=== PATIENT | male | born 1980 | race Hispanic/Latino ===

== ENCOUNTER 2016-08-21 22:36 | Emergency (ER) | payer MEDICARE ==
[2016-08-21 22:57] VITALS: BP 129/88
[2016-08-21 23:17] LABS: Basophils % (Auto) 0.6 % (0.0-1.8); Eosinophils % (Auto) 1.3 % (0.0-4.3); Hematocrit 48.5 % (35.5-45.6); Hemoglobin 15.9 gm/dl (11.8-15.2); Mean Corpuscular HGB Conc 33 % (32-34); Mean Corpuscular Hemoglobin 30 pg (28-32); Mean Corpuscular Volume 91 fl (84-94); Platelet Count 230 K/mm3 (140-440); Red Blood Count 5.33 M/mm3 (3.65-5.03); Red Cell Distribution Width 13.5 % (13.2-15.2); White Blood Count 9.3 K/mm3 (4.5-11.0)
[2016-08-21 23:34] LABS: Anion Gap 12 mmol/L; Blood Urea Nitrogen 4 mg/dL (9-20); Calcium 9.1 mg/dL (8.4-10.2); Carbon Dioxide 30 mmol/L (22-30); Chloride 97.8 mmol/L (98-107); Glucose 118 mg/dL (75-100); Potassium 3.8 mmol/L (3.6-5.0); Sodium 136 mmol/L (137-145)
[2016-08-21 23:42] LABS: Urine Drugs of Abuse Note Disclamer
[2016-08-22 00:24] LABS: Bilirubin,Urine NEG (Negative); Blood,Urine NEG (Negative); Ketones,Urine NEG (Negative); Leukocyte Esterase,Urine NEG (Negative); Nitrite,Urine NEG (Negative); Protein,Urine <15 mg/dL mg/dL (Negative); Urobilinogen,Urine < 2.0 mg/dL (<2.0)
== END 2016-08-21 23:45 | disposition left against medical advice (07) ==
LOC: ED 22:36
DX: R45.851 Suicidal ideations (principal); Z53.21 Procedure and treatment not carried out due to patient leaving prior to being seen by health care provider
CPT/HCPCS: 36415; 80048; 80307; 81001; 85025; G0480; 80320

== ENCOUNTER 2016-09-17 10:45 | Emergency (ER) | payer MEDICARE ==
--- NOTE | 2016-09-17 12:34 | Emergency Department Report ---
Chief Complaint: Dental/Oral Stated Complaint: MOUTH PAIN Time Seen by Provider: 09/17/16 12:22 - HPI History of Present Illness: pt c/o dental pain x 3 days. Pt states his teeth are loose. PT states he has not been to the dentist in a long time. PT states he came to the ED today because he thought he was going to pass out. 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 Due to findings the following was ordered: ekg, cxr, labs ED Disposition for MSE Condition: Stable Referrals: PRIMARY CARE, [Primary Care Provider] - 3-5 Days
--- NOTE | 2016-09-17 13:39 | XRay Report ---
ROUTINE CHEST, TWO VIEWS: HISTORY: Short of breath. The trachea, heart, mediastinal contour, lung fuller and bony thorax are unremarkable. IMPRESSION: Unremarkable chest x-ray.
[2016-09-17 13:43] LABS: Basophils % (Auto) 0.6 % (0.0-1.8); Eosinophils % (Auto) 2.2 % (0.0-4.3); Hematocrit 44.1 % (35.5-45.6); Hemoglobin 15.1 gm/dl (11.8-15.2); Mean Corpuscular HGB Conc 34 % (32-34); Mean Corpuscular Hemoglobin 30 pg (28-32); Mean Corpuscular Volume 88 fl (84-94); Platelet Count 249 K/mm3 (140-440); Red Blood Count 5.02 M/mm3 (3.65-5.03); White Blood Count 8.7 K/mm3 (4.5-11.0)
[2016-09-17 13:50] LABS: INR 0.92 (0.87-1.13)
[2016-09-17 13:51] LABS: Partial Thromboplastin Time 27.6 Sec. (24.2-36.6)
[2016-09-17 13:58] LABS: Alanine Aminotransferase 86 units/L (7-56); Albumin 4.4 g/dL (3.9-5); Albumin/Globulin Ratio 1.4 %; Alkaline Phosphatase 87 units/L (35-129); Anion Gap 18 mmol/L; Blood Urea Nitrogen 6 mg/dL (9-20); Calcium 9.3 mg/dL (8.4-10.2); Carbon Dioxide 25 mmol/L (22-30); Chloride 101.9 mmol/L (98-107); Glucose 103 mg/dL (75-100); Potassium 4.1 mmol/L (3.6-5.0); Sodium 141 mmol/L (137-145); Total Protein 7.5 g/dL (6.3-8.2)
[2016-09-17 20:44] VITALS: BP 128/79
--- NOTE | 2016-09-17 21:34 | Emergency Department Report ---
ED ENT HPI - General Chief complaint: Dental/Oral Stated complaint: MOUTH PAIN Time Seen by Provider: 09/17/16 12:22 Source: patient Mode of arrival: Ambulatory Limitations: No Limitations - History of Present Illness Initial comments: 36-year-old male with a past medical history of schizophrenia presents to the hospital complains of painful and swelling to gums for the past 3-4 days. Patient states he's been feeling hot but did not take his temperature and suspects he has had fever. Earlier today patient felt like he was going to pass out. He denies chest pain, shortness of breath, nausea, vomiting, or diarrhea. Patient has not recently seen a dentist. Pain is rated 7/10 in intensity, aching, and intermittent. Worse with palpation. - Related Data Home Medications Medication Instructions Recorded Confirmed Last Taken Olanzapine [ZyPREXA] 20 mg PO HS 02/23/14 08/21/16 04/11/14 Benadryl CAP 50 mg PO HS 08/21/16 08/21/16 Unknown Previous Rx's Medication Instructions Recorded Last Taken Type Chlorhexidine Mouthwash [Peridex] 15 ml MM BID #1 bottle 09/17/16 Unknown Rx Clindamycin [Clindamycin CAP] 450 mg PO Q8HR 10 Days 09/17/16 Unknown Rx Ibuprofen [Motrin] 800 mg PO Q8HR PRN #30 tablet 09/17/16 Unknown Rx traMADol [Ultram 50 MG tab] 50 mg PO Q6HR PRN #20 tablet 09/17/16 Unknown Rx Allergies Allergy/AdvReac Type Severity Reaction Status Date / Time No Known Allergies Allergy Verified 09/17/16 12:07 ED Dental HPI - General Chief complaint: Dental/Oral Stated complaint: MOUTH PAIN Time Seen by Provider: 09/17/16 12:22 Source: patient Mode of arrival: Ambulatory Limitations: No Limitations - Related Data Home Medications Medication Instructions Recorded Confirmed Last Taken Olanzapine [ZyPREXA] 20 mg PO HS 02/23/14 08/21/16 04/11/14 Benadryl CAP 50 mg PO HS 08/21/16 08/21/16 Unknown Previous Rx's Medication Instructions Recorded Last Taken Type Chlorhexidine Mouthwash [Peridex] 15 ml MM BID #1 bottle 09/17/16 Unknown Rx Clindamycin [Clindamycin CAP] 450 mg PO Q8HR 10 Days 09/17/16 Unknown Rx Ibuprofen [Motrin] 800 mg PO Q8HR PRN #30 tablet 09/17/16 Unknown Rx traMADol [Ultram 50 MG tab] 50 mg PO Q6HR PRN #20 tablet 09/17/16 Unknown Rx Allergies Allergy/AdvReac Type Severity Reaction Status Date / Time No Known Allergies Allergy Verified 09/17/16 12:07 ED Review of Systems ROS: Stated complaint: MOUTH PAIN Other details as noted in HPI Comment: All other systems reviewed and negative Other: Constitutional: No fevers chills Eyes: No eye pain visual changes or discharge ENT: As per HPI Neck: Denies pain Respiratory: Denies cough wheezing shortness of breath Cardiovascular: Denies chest pain, palpitations, syncope GI: Denies abdominal pain, nausea, vomiting, diarrhea : Denies dysuria, urinary frequency, or urgency Musculoskeletal: Denies back pain, joint swelling Skin: Denies rash, lesions, erythema Neurologic: Denies headache, numbness, weakness Psychiatric: Denies suicidal ideation, hallucinations ED Past Medical Hx - Past Medical History Hx Psychiatric Treatment: Yes (Schizophrenia) - Surgical History Past Surgical History?: No - Social History Smoking Status: Current Every Day Smoker Substance Use Type: None - Medications Home Medications: Home Medications Medication Instructions Recorded Confirmed Last Taken Type Olanzapine [ZyPREXA] 20 mg PO HS 02/23/14 08/21/16 04/11/14 History Benadryl CAP 50 mg PO HS 08/21/16 08/21/16 Unknown History Chlorhexidine Mouthwash [Peridex] 15 ml MM BID #1 bottle 09/17/16 Unknown Rx Clindamycin [Clindamycin CAP] 450 mg PO Q8HR 10 Days 09/17/16 Unknown Rx Ibuprofen [Motrin] 800 mg PO Q8HR PRN #30 tablet 09/17/16 Unknown Rx traMADol [Ultram 50 MG tab] 50 mg PO Q6HR PRN #20 tablet 09/17/16 Unknown Rx ED Physical Exam - General Limitations: No Limitations - Other Other exam information: General: No limitations, patient is alert in no acute distress Head exam: Atraumatic, normocephalic Eyes exam: Normal appearance, pupils equal reactive to light, extraocular movements intact ENT: Moist mucous membrane, tooth #11 with swelling at home without fluctuance. Dental caries and loose tooth #12. No ulcerations noted Neck exam: Normal inspection, full range of motion, no meningismus nontender Respiratory exam: Clear to auscultation bilateral, no wheezes, rales, crackles Cardiovascular: Normal rate and rhythm, normal heart sounds Abdomen: Soft, nondistended, and nontender, with normal bowel sounds, no rebound, or guarding Extremity: Full range of motion normal inspection no deformity Back: Normal Inspection, full range of motion, no tenderness Neurologic: Alert, oriented x3, cranial nerves intact, no motor or sensory deficit Psychiatric: normal affect, normal mood Skin: Warm, dry, intact ED Course Vital Signs 09/17/16 09/17/16 12:09 20:44 Temperature 97.9 F Pulse Rate 90 79 Respiratory 17 19 Rate Blood Pressure 119/81 Blood Pressure 128/79 [Right] O2 Sat by Pulse 100 96 Oximetry - Reevaluation(s) Reevaluation #1: 09/17/16 21:31 Patient stable. ED Medical Decision Making - Lab Data Result diagrams: 09/17/16 13:08 09/17/16 13:08 Lab Results 09/17/16 09/17/16 09/17/16 Range/Units 13:08 13:08 13:08 WBC 8.7 (4.5-11.0) K/mm3 RBC 5.02 (3.65-5.03) M/mm3 Hgb 15.1 (11.8-15.2) gm/dl Hct 44.1 (35.5-45.6) % MCV 88 (84-94) fl MCH 30 (28-32) pg MCHC 34 (32-34) % RDW 13.0 L (13.2-15.2) % Plt Count 249 (140-440) K/mm3 Lymph % (Auto) 29.4 (13.4-35.0) % [place] % (Auto) 8.1 H (0.0-7.3) % Eos % (Auto) 2.2 (0.0-4.3) % Baso % (Auto) 0.6 (0.0-1.8) % Lymph # 2.6 (1.2-5.4) K/mm3 [place] # 0.7 (0.0-0.8) K/mm3 Eos # 0.2 (0.0-0.4) K/mm3 Baso # 0.0 (0.0-0.1) K/mm3 Seg Neutrophils % 59.7 (40.0-70.0) % Seg Neutrophils # 5.2 (1.8-7.7) K/mm3 PT 12.8 (12.2-14.9) Sec. INR 0.92 (0.87-1.13) APTT 27.6 (24.2-36.6) Sec. Sodium 141 (137-145) mmol/L Potassium 4.1 (3.6-5.0) mmol/L Chloride 101.9 (98-107) mmol/L Carbon Dioxide 25 (22-30) mmol/L Anion Gap 18 mmol/L BUN 6 L (9-20) mg/dL Creatinine 0.8 (0.8-1.5) mg/dL Estimated GFR > 60 ml/min BUN/Creatinine Ratio 7.50 % Glucose 103 H (75-100) mg/dL Calcium 9.3 (8.4-10.2) mg/dL Total Bilirubin 0.30 (0.1-1.2) mg/dL AST 35 (5-40) units/L ALT 86 H (7-56) units/L Alkaline Phosphatase 87 (35-129) units/L Troponin T < 0.010 (0.00-0.029) ng/mL Total Protein 7.5 (6.3-8.2) g/dL Albumin 4.4 (3.9-5) g/dL Albumin/Globulin Ratio 1.4 % - EKG Data -: EKG Interpreted by Me (sinus rate [address] elevation ND or T inversion) - EKG Data When compared to previous EKG there are: previous EKG unavailable - Medical Decision Making Patient was treated with antibiotics and mouthwash. Follow up with dentist be encouraged. Labs, vital signs, and EKG unremarkable - Differential Diagnosis dental caries, fractured tooth, gingivitis Critical Care Time: No Critical care attestation.: If time is entered above; I have spent that time in minutes in the direct care of this critically ill patient, excluding procedure time. ED Disposition Clinical Impression: Infected dental caries Disposition: DC-01 TO HOME OR SELFCARE Is pt being admited?: No Does the pt Need Aspirin: No Condition: Stable Instructions: Dental Abscess (ED) Additional Instructions: Take the medication as prescribed. Follow-up with the dentist provided or with a dentist of your choice. Return if symptoms worsen Prescriptions: Chlorhexidine Mouthwash [Peridex] 15 ml MM BID #1 bottle Clindamycin [Clindamycin CAP] 450 mg PO Q8HR 10 Days Ibuprofen [Motrin] 800 mg PO Q8HR PRN #30 tablet PRN Reason: Pain traMADol [Ultram 50 MG tab] 50 mg PO Q6HR PRN #20 tablet PRN Reason: Pain Referrals: [facility] [Outside] - 3-[address] [facility] [Provider Group] - 3-5 Days Time of Disposition: 21:35
== END 2016-09-17 21:43 | disposition home or self-care (01) ==
LOC: ED 10:45
DX: K04.7 Periapical abscess without sinus (principal); K02.9 Dental caries, unspecified; F20.9 Schizophrenia, unspecified; F17.200 Nicotine dependence, unspecified, uncomplicated
CPT/HCPCS: 36415; 71020; 80053; 84484; 85025; 85610; 85730; 93005; 93010; 99283

== ENCOUNTER 2017-01-15 19:57 | Emergency (ER) | payer MEDICARE ==
[2017-01-15 20:17] VITALS: BP 167/104
[2017-01-15 20:52] LABS: Basophils % (Auto) 0.6 % (0.0-1.8); Eosinophils % (Auto) 1.2 % (0.0-4.3); Hematocrit 47.6 % (35.5-45.6); Hemoglobin 15.7 gm/dl (11.8-15.2); Mean Corpuscular HGB Conc 33 % (32-34); Mean Corpuscular Hemoglobin 29 pg (28-32); Mean Corpuscular Volume 88 fl (84-94); Platelet Count 300 K/mm3 (140-440); Red Blood Count 5.41 M/mm3 (3.65-5.03); Red Cell Distribution Width 13.4 % (13.2-15.2); White Blood Count 11.4 K/mm3 (4.5-11.0)
[2017-01-15 21:12] LABS: Anion Gap 19 mmol/L; BUN/Creatinine Ratio 8; Blood Urea Nitrogen 6 mg/dL (9-20); Calcium 9.4 mg/dL (8.4-10.2); Carbon Dioxide 25 mmol/L (22-30); Chloride 100.6 mmol/L (98-107); Glucose 94 mg/dL (75-100); Potassium 3.9 mmol/L (3.6-5.0); Sodium 141 mmol/L (137-145)
[2017-01-15 21:13] LABS: Urine Drugs of Abuse Note Disclamer
[2017-01-15 21:14] LABS: Anion Gap 21 mmol/L; BUN/Creatinine Ratio 8; Blood Urea Nitrogen 6 mg/dL (9-20); Calcium 9.6 mg/dL (8.4-10.2); Carbon Dioxide 25 mmol/L (22-30); Chloride 100.3 mmol/L (98-107); Glucose 94 mg/dL (75-100); Sodium 142 mmol/L (137-145)
[2017-01-15 21:20] LABS: Bilirubin,Urine NEG (Negative); Blood,Urine NEG (Negative); Ketones,Urine NEG (Negative); Leukocyte Esterase,Urine NEG (Negative); Nitrite,Urine NEG (Negative); Protein,Urine <15 mg/dL mg/dL (Negative); Urobilinogen,Urine < 2.0 mg/dL (<2.0); WBC,Urine < 1.0 /HPF (0.0-6.0)
== END 2017-01-16 07:30 | disposition left against medical advice (07) ==
LOC: ED 19:57
DX: R07.9 Chest pain, unspecified (principal); R44.0 Auditory hallucinations; F20.9 Schizophrenia, unspecified; F17.200 Nicotine dependence, unspecified, uncomplicated; Z53.21 Procedure and treatment not carried out due to patient leaving prior to being seen by health care provider
CPT/HCPCS: 36415; 80048; 80307; 81001; 84484; 85025; 93005; 93010; G0480; 80320

== ENCOUNTER 2017-03-02 21:20 | Emergency (ER) | payer MEDICARE ==
[2017-03-02] MEDS ORDERED: NACL 0.9% 1000 ML 1,000 ML IV ONE (21:49)
[2017-03-02 22:45] LABS: Basophils % (Auto) 0.3 % (0.0-1.8); Eosinophils % (Auto) 0.2 % (0.0-4.3); Hematocrit 41.5 % (35.5-45.6); Hemoglobin 14.3 gm/dl (11.8-15.2); Lymphocytes # (Auto) 1.7 K/mm3 (1.2-5.4); Lymphocytes % (Auto) 17.7 % (13.4-35.0); Mean Corpuscular HGB Conc 35 % (32-34); Mean Corpuscular Hemoglobin 30 pg (28-32); Mean Corpuscular Volume 86 fl (84-94); Monocytes # (Auto) 1.1 K/mm3 (0.0-0.8); Monocytes % (Auto) 11.5 % (0.0-7.3); Platelet Count 154 K/mm3 (140-440); Red Blood Count 4.85 M/mm3 (3.65-5.03); Red Cell Distribution Width 13.2 % (13.2-15.2)
[2017-03-02 23:01] LABS: Alanine Aminotransferase 20 units/L (7-56); Albumin 4.1 g/dL (3.9-5); BUN/Creatinine Ratio 4; Blood Urea Nitrogen 4 mg/dL (9-20); Calcium 8.6 mg/dL (8.4-10.2); Hemolysis Index 4
[2017-03-02 23:04] VITALS: BP 121/69
[2017-03-02] MEDS ORDERED: TYLENOL PO ONE (23:04)
[2017-03-02] MEDS ORDERED: TYLENOL ONE (23:06)
[2017-03-02 23:58] LABS: Bilirubin,Urine NEG (Negative); Blood,Urine SM (Negative); Color,Urine Yellow (Yellow); Nitrite,Urine NEG (Negative); Protein,Urine <15 mg/dL mg/dL (Negative)
== END 2017-03-03 14:50 | disposition left against medical advice (07) ==
LOC: ED 21:20
DX: R19.7 Diarrhea, unspecified (principal); Z53.21 Procedure and treatment not carried out due to patient leaving prior to being seen by health care provider
CPT/HCPCS: 36415; 80053; 81001; 85025; 93005; 93010; 96360; 96361; J7030

== ENCOUNTER 2018-08-01 22:41 | Emergency (ER) | payer MEDICARE ==
[2018-08-01 23:55] LABS: Basophils % (Auto) 0.6 % (0.0-1.8); Eosinophils # (Auto) 0.3 K/mm3 (0.0-0.4); Eosinophils % (Auto) 3.4 % (0.0-4.3); Hematocrit 41.8 % (35.5-45.6); Hemoglobin 14.2 gm/dl (11.8-15.2); Lymphocytes # (Auto) 2.8 K/mm3 (1.2-5.4); Lymphocytes % (Auto) 34.7 % (13.4-35.0); Mean Corpuscular HGB Conc 34 % (32-34); Mean Corpuscular Volume 92 fl (84-94); Monocytes % (Auto) 12.7 % (0.0-7.3); Platelet Count 193 K/mm3 (140-440); Red Blood Count 4.57 M/mm3 (3.65-5.03); Red Cell Distribution Width 13.3 % (13.2-15.2)
--- NOTE | 2018-08-01 23:58 | Emergency Department Report ---
ED Medical Clearance HPI - General Chief complaint: Medical Clearance Stated complaint: MEDICAL CLEARANCE Time Seen by Provider: 08/01/18 23:52 Source: patient Mode of arrival: Ambulatory - History of Present Illness Initial comments: 38-year-old male states he is at [facility] and was 8 minutes late pass curfew. The patient sent to ER for medical clearance. The patient has no complaints, denies drug or alcohol use today. MD Complaint: medical clearance request -: This evening Reason for Medical Clearance: other (possible intoxication) Traumatic Symptoms: denies traumatic injury Home medications: Home Medications Medication Instructions Recorded Confirmed Last Taken Olanzapine [ZyPREXA] 20 mg PO HS 02/23/14 08/21/16 04/11/14 Benadryl CAP 50 mg PO HS 08/21/16 08/21/16 Unknown Previous Rx's Medication Instructions Recorded Last Taken Type Chlorhexidine Mouthwash [Peridex] 15 ml MM BID #1 bottle 09/17/16 Unknown Rx Clindamycin [Clindamycin CAP] 450 mg PO Q8HR 10 Days capsule 09/17/16 Unknown Rx Ibuprofen [Motrin] 800 mg PO Q8HR PRN #30 tablet 09/17/16 Unknown Rx traMADol [Ultram 50 MG tab] 50 mg PO Q6HR PRN #20 tablet 09/17/16 Unknown Rx Allergies/Adverse reactions: Allergies Allergy/AdvReac Type Severity Reaction Status Date / Time No Known Allergies Allergy Verified 09/17/16 12:07 ED Review of Systems ROS: Stated complaint: MEDICAL CLEARANCE Other details as noted in HPI Comment: All other systems reviewed and negative Psychiatric: denies: auditory hallucinations, homicidal thoughts, suicidal thoughts ED Past Medical Hx - Past Medical History Previous Medical History?: Yes Hx Psychiatric Treatment: Yes (Schizophrenia) - Surgical History Past Surgical History?: No - Social History Smoking Status: Current Every Day Smoker Substance Use Type: None - Medications Home Medications: Home Medications Medication Instructions Recorded Confirmed Last Taken Type Olanzapine [ZyPREXA] 20 mg PO HS 02/23/14 08/21/16 04/11/14 History Benadryl CAP 50 mg PO HS 08/21/16 08/21/16 Unknown History Chlorhexidine Mouthwash [Peridex] 15 ml MM BID #1 bottle 09/17/16 Unknown Rx Clindamycin [Clindamycin CAP] 450 mg PO Q8HR 10 Days capsule 09/17/16 Unknown Rx Ibuprofen [Motrin] 800 mg PO Q8HR PRN #30 tablet 09/17/16 Unknown Rx traMADol [Ultram 50 MG tab] 50 mg PO Q6HR PRN #20 tablet 09/17/16 Unknown Rx ED Physical Exam - General Limitations: No Limitations General appearance: alert, in no apparent distress - Head Head exam: Present: atraumatic, normocephalic - Eye Eye exam: Present: normal appearance - ENT ENT exam: Present: mucous membranes moist - Neck Neck exam: Present: normal inspection - Respiratory Respiratory exam: Present: normal lung sounds bilaterally. Absent: respiratory distress - Cardiovascular Cardiovascular Exam: Present: regular rate, normal rhythm - GI/Abdominal GI/Abdominal exam: Present: soft. Absent: distended, tenderness - Extremities Exam Extremities exam: Present: normal inspection - Neurological Exam Neurological exam: Present: alert, oriented X3 - Psychiatric Psychiatric exam: Present: normal affect, normal mood - Skin Skin exam: Present: warm, dry, intact, normal color ED Course Vital Signs 08/01/18 08/01/18 08/02/18 23:01 23:58 00:02 Temperature 98.2 F 98.6 F Pulse Rate 82 90 Respiratory 18 18 18 Rate Blood Pressure 139/78 Blood Pressure 130/77 [Left] O2 Sat by Pulse 96 96 Oximetry ED Medical Decision Making - Lab Data Result diagrams: 08/01/18 23:20 08/01/18 23:20 - Medical Decision Making - labs unremarkable - vitals normal - will d/c at this time back to [facility] ED Disposition Clinical Impression: Medical clearance for psychiatric admission Disposition: - TO HOME OR SELFCARE Is pt being admited?: No Condition: Stable Additional Instructions: You have been medically cleared to return to [facility]. Referrals: PRIMARY CARE [Primary Care Provider] - 3-5 Days Time of Disposition: 00:28
[2018-08-02 00:03] VITALS: BP 130/77
[2018-08-02 00:09] LABS: Bacteria,Urine 1+ /HPF (Negative); Bilirubin,Urine NEG (Negative); Blood,Urine SM (Negative); Color,Urine Yellow (Yellow); Protein,Urine <15 mg/dL mg/dL (Negative); Urobilinogen,Urine < 2.0 mg/dL (<2.0)
[2018-08-02 00:15] LABS: Blood Urea Nitrogen 7 mg/dL (9-20)
[2018-08-02 00:16] LABS: BUN/Creatinine Ratio 9; Hemolysis Index 7
[2018-08-02 00:18] LABS: Amphetamine Screen,Urine PRESUMPTIVE NEGATIVE; Benzodiazepines Screen,Urine PRESUMPTIVE NEGATIVE; Cannabinoid Screen,Urine PRESUMPTIVE NEGATIVE; Cocaine Screen,Urine PRESUMPTIVE NEGATIVE; Methadone Screen,Urine PRESUMPTIVE NEGATIVE; Opiate Screen,Urine PRESUMPTIVE NEGATIVE
== END 2018-08-02 00:35 | disposition home or self-care (01) ==
LOC: ED 22:41
DX: F20.9 Schizophrenia, unspecified (principal); F17.200 Nicotine dependence, unspecified, uncomplicated; Z79.899 Other long term (current) drug therapy
CPT/HCPCS: 36415; 80048; 80307; 81001; 85025; 99284; G0480; 80320

== ENCOUNTER 2018-12-05 18:31 | Emergency (ER) | payer MEDICARE ==
[2018-12-05 20:22] LABS: Bilirubin,Urine NEG (Negative); Blood,Urine SM (Negative); Color,Urine Straw (Yellow); Protein,Urine <15 mg/dL mg/dL (Negative); Urobilinogen,Urine < 2.0 mg/dL (<2.0); WBC,Urine < 1.0 /HPF (0.0-6.0)
--- NOTE | 2018-12-05 20:27 | Emergency Department Report ---
<POOJA JORGE - Last Filed: 12/05/18 20:23> ED Psych HPI - General Chief Complaint: Psych Stated Complaint: SI/HEARING VOICES/DETOX Time Seen by Provider: 12/05/18 20:20 Source: patient Mode of arrival: Ambulatory - History of Present Illness Initial Comments: Mr. Edwards is s 38 y/o wm with hx of schizophrenia who presents SI plan is overdose on sleeping pills. States he has sleeping pills in his b More ill vaginal MD Complaint: suicidal ideation Onset/Timin -: days(s) Associated Psychiatric Symptoms: suicidal ideation History of same: Yes Quality: intermittent Improves With: none Worsens With: none Associated Symptoms: denies other symptoms Treatments Prior to Arrival: none If Self Harm: admits thoughts of, has plan (OD on sleeping pills ) - Related Data Home Medications Medication Instructions Recorded Confirmed Last Taken Olanzapine [ZyPREXA] 20 mg PO HS 02/23/14 12/05/18 04/11/14 Benadryl CAP 50 mg PO HS 08/21/16 12/05/18 Unknown Previous Rx's Medication Instructions Recorded Last Taken Type Chlorhexidine Mouthwash [Peridex] 15 ml MM BID #1 bottle 09/17/16 Unknown Rx Clindamycin [Clindamycin CAP] 450 mg PO Q8HR 10 Days capsule 09/17/16 Unknown Rx Ibuprofen [Motrin] 800 mg PO Q8HR PRN #30 tablet 09/17/16 Unknown Rx traMADol [Ultram 50 MG tab] 50 mg PO Q6HR PRN #20 tablet 09/17/16 Unknown Rx Allergies Allergy/AdvReac Type Severity Reaction Status Date / Time No Known Allergies Allergy Verified 09/17/16 12:07 ED Past Medical Hx - Past Medical History Previous Medical History?: Yes Hx Psychiatric Treatment: Yes (Schizophrenia, Methamphetamine ise) - Surgical History Past Surgical History?: No - Social History Smoking Status: Current Every Day Smoker Substance Use Type: Alcohol, Prescribed, Methamphetamines - Medications Home Medications: Home Medications Medication Instructions Recorded Confirmed Last Taken Type Olanzapine [ZyPREXA] 20 mg PO HS 02/23/14 12/05/18 04/11/14 History Benadryl CAP 50 mg PO HS 08/21/16 12/05/18 Unknown History Chlorhexidine Mouthwash [Peridex] 15 ml MM BID #1 bottle 09/17/16 12/05/18 Unknown Rx Clindamycin [Clindamycin CAP] 450 mg PO Q8HR 10 Days capsule 09/17/16 12/05/18 Unknown Rx Ibuprofen [Motrin] 800 mg PO Q8HR PRN #30 tablet 09/17/16 12/05/18 Unknown Rx traMADol [Ultram 50 MG tab] 50 mg PO Q6HR PRN #20 tablet 09/17/16 12/05/18 Unknown Rx ED Physical Exam - General Limitations: No Limitations General appearance: alert, in no apparent distress - Head Head exam: Present: atraumatic, normocephalic - Eye Eye exam: Present: normal appearance, PERRL, EOMI Pupils: Present: normal accommodation - ENT ENT exam: Present: normal exam - Neck Neck exam: Present: normal inspection, full ROM. Absent: tenderness, lymphadenopathy, thyromegaly - Respiratory Respiratory exam: Present: normal lung sounds bilaterally. Absent: respiratory distress, wheezes, stridor, chest wall tenderness - Cardiovascular Cardiovascular Exam: Present: regular rate, normal rhythm, normal heart sounds. Absent: systolic murmur, diastolic murmur, rubs, gallop - GI/Abdominal GI/Abdominal exam: Present: soft, normal bowel sounds. Absent: distended, tenderness, bruit, hernia - Rectal Rectal exam: Present: deferred - Extremities Exam Extremities exam: Present: normal inspection, full ROM. Absent: tenderness - Back Exam Back exam: Present: normal inspection, full ROM. Absent: tenderness, CVA tenderness (R), CVA tenderness (L) - Neurological Exam Neurological exam: Present: alert, oriented X3, CN II-XII intact, normal gait - Psychiatric Psychiatric exam: Present: anxious, suicidal ideation - Skin Skin exam: Present: warm, dry, intact, normal color. Absent: rash ED Course - Reevaluation(s) Reevaluation #1: PT for 1013 at this for SI, with plan to OD on sleeping pills, has hx of same, not on psych medications at this time. Awaiting medical clearance and psych evlauation. ED Disposition Clinical Impression: Suicidal ideations, Schizophrenia Disposition: DC-01 TO HOME OR SELFCARE Condition: Stable Instructions: Schizophrenia (ED), Suicide Prevention for Adults (ED) Additional Instructions: Please follow-up with Dr. Steele in the next few days. I have also given you a referral for the [facility]. Return to the emergency Department with any worsening of your symptoms, thoughts of harming yourself or others, or any acute distress. Referrals: [facility] [Outside] - [address] [Other] - RACHEL <SURINDER POWERS - Last Filed: 12/06/18 11:18> ED Review of Systems ROS: Stated complaint: SI/HEARING VOICES/DETOX Other details as noted in HPI ED Course Vital Signs 12/05/18 12/05/18 12/06/18 18:41 20:22 01:00 Temperature 97.5 F L 98.0 F 97.7 F Pulse Rate 122 H 98 H 65 Respiratory 20 18 16 Rate Blood Pressure 136/86 Blood Pressure 122/90 94/61 [Left] O2 Sat by Pulse 96 100 Oximetry 12/06/18 07:00 Temperature 97.4 F L Pulse Rate 83 Respiratory 13 Rate Blood Pressure Blood Pressure 157/99 [Left] O2 Sat by Pulse 98 Oximetry ED Medical Decision Making - Lab Data Result diagrams: 12/06/18 Unknown 12/06/18 Unknown - Medical Decision Making This patient initially was made a 1013 after he had some suicidal ideations with the thought of overdosing on sleeping medication. He was seen by the psychiatric team who has rescinded the 1013 and feels the patient is safe for outpatient follow-up and discharge. He gets monthly injections of his psychiatric medication and has good outpatient follow-up with a psychiatrist. I saw the patient today and he is awake, oriented, calm and appropriate. He denies any suicidal or homicidal ideations. The patient has been instructed to follow-up with his primary care physician, his psychiatrist, and to return to the emergency Department with any thoughts of harming himself or others, or with any acute distress. - Differential Diagnosis schizophrenia, bipolar disorder, schizoaffective Critical Care Time: No Critical care attestation.: If time is entered above; I have spent that time in minutes in the direct care of this critically ill patient, excluding procedure time. ED Disposition Is pt being admited?: No Time of Disposition: 11:06
[2018-12-05 20:30] LABS: Amphetamine Screen,Urine PRESUMPTIVE NEGATIVE; Benzodiazepines Screen,Urine PRESUMPTIVE NEGATIVE; Cannabinoid Screen,Urine PRESUMPTIVE NEGATIVE; Cocaine Screen,Urine PRESUMPTIVE NEGATIVE; Methadone Screen,Urine PRESUMPTIVE NEGATIVE; Opiate Screen,Urine PRESUMPTIVE NEGATIVE
[2018-12-06] MEDS ORDERED: diphenhydrAMINE 25 MG CAP PO ONE (00:37)
[2018-12-06 08:20] VITALS: BP 157/99
[2018-12-06 08:50] LABS: Basophils % (Auto) 0.6 % (0.0-1.8); Eosinophils # (Auto) 0.2 K/mm3 (0.0-0.4); Hematocrit 41.9 % (35.5-45.6); Hemoglobin 14.5 gm/dl (11.8-15.2); Lymphocytes # (Auto) 2.3 K/mm3 (1.2-5.4); Lymphocytes % (Auto) 34.2 % (13.4-35.0); Mean Corpuscular HGB Conc 35 % (32-34); Mean Corpuscular Volume 88 fl (84-94); Monocytes # (Auto) 0.6 K/mm3 (0.0-0.8); Monocytes % (Auto) 8.9 % (0.0-7.3); Platelet Count 191 K/mm3 (140-440); Red Blood Count 4.78 M/mm3 (3.65-5.03)
[2018-12-06 09:02] LABS: BUN/Creatinine Ratio 11; Blood Urea Nitrogen 9 mg/dL (9-20); Hemolysis Index 10
--- NOTE | 2018-12-06 09:57 | Consultation ---
History of Present Illness - Reason for Consult Consult date: 12/06/18 Reason for consult: Mental Health Evaluation Requesting physician: POOJA JORGE - Chief Complaint Chief complaint: "I don't like living with my dad' - History of Present Psychiatric Illness 38 y.o. white male who presented to the ER for Si's. The patient was calm and cooperative during the assessment. He stated that he wasn't suicidal on arrival to the ER. He stated that he do not like living with his "dad" so he came to the ER. He stated that he needed a "break" from home. He was offered long-term information, he declined. He stated, "I will go back home." He stated that he is seen by Dr Steele for outpatient psy services and receive the monthly Invega injection for his mood. He stated that he received the injection a week ago. He denies SI/HI's and AVH's. He denies erratic sleep and a poor appetite. He denies recreational drug use and alcohol consumption (etoh). Medications and Allergies Allergies Allergy/AdvReac Type Severity Reaction Status Date / Time No Known Allergies Allergy Verified 09/17/16 12:07 Home Medications Medication Instructions Recorded Confirmed Last Taken Type Olanzapine [ZyPREXA] 20 mg PO HS 02/23/14 12/05/18 04/11/14 History Benadryl CAP 50 mg PO HS 08/21/16 12/05/18 Unknown History Chlorhexidine Mouthwash [Peridex] 15 ml MM BID #1 bottle 09/17/16 12/05/18 Unknown Rx Clindamycin [Clindamycin CAP] 450 mg PO Q8HR 10 Days capsule 09/17/16 12/05/18 Unknown Rx Ibuprofen [Motrin] 800 mg PO Q8HR PRN #30 tablet 09/17/16 12/05/18 Unknown Rx traMADol [Ultram 50 MG tab] 50 mg PO Q6HR PRN #20 tablet 09/17/16 12/05/18 Unknown Rx Past psychiatric history - Past Medical History Past Medical History: No medical history Past Surgical History: No surgical history - past Psychiatric treatment and history psychiatric treatment history: Hx of mood do. Denies a fam psy hx. - Social History Social history: lives with family Mental Status Exam - Vital signs Last Vital Signs Temp 97.4 F L 12/06/18 07:00 Pulse 83 12/06/18 07:00 Resp 13 12/06/18 07:00 BP 157/99 12/06/18 07:00 Pulse Ox 98 12/06/18 07:00 - Exam Narrative exam: MSE: Appearance: calm and cooperative Behavior: regular eye contact Speech: regular rate and tone Mood: "okay" Affect: congruent to mood Thought Process: circumstantial Thought Content: denies SI/HI's and AVH's Motor Activity: sitting up in bed Cognition: A/O x3 Insight: fair Judgment: fair Results Result Diagrams: 12/06/18 Unknown 12/06/18 Unknown Abnormal lab results 12/06/18 12/06/18 12/06/18 Range/Units Unknown Unknown Unknown MCHC (32-34) % [place] % (Auto) (0.0-7.3) % Glucose 107 H (75-100) mg/dL Salicylates < 0.3 L (2.8-20.0) mg/dL Acetaminophen < 5.0 L (10.0-30.0) ug/mL 12/06/18 Range/Units Unknown MCHC 35 H (32-34) % [place] % (Auto) 8.9 H (0.0-7.3) % Glucose (75-100) mg/dL Salicylates (2.8-20.0) mg/dL Acetaminophen (10.0-30.0) ug/mL All other labs normal. Assessment and Plan Assessment and plan: Impression: Hx of Mood DO. Today the patient was calm and cooperative during the assessment. The patient is no threat to self. Recommendation/Plan: Rescind 1013. The patient receive the monthly Invega injection. Dispo: The patient can follow up with Dr Steele for outpatient psy services. Will staff with Dr. Lissy Jimenez.
== END 2018-12-06 11:30 | disposition home or self-care (01) ==
LOC: ED 18:31 → EEVIPCON 18:31 → ED 12-06 11:30
DX: F20.0 Paranoid schizophrenia (principal); F17.200 Nicotine dependence, unspecified, uncomplicated; F39 Unspecified mood [affective] disorder; F15.10 Other stimulant abuse, uncomplicated; Z79.899 Other long term (current) drug therapy
CPT/HCPCS: 36415; 80048; 80307; 80320; 81001; 85025; G0480